=== PATIENT | male | born 1955 | race Caucasian/White ===

== ENCOUNTER 2018-12-07 00:10 | Day surgery (SDC) | payer OTHER ==
[~2018-12-07] VITALS: Ht 185.4 cm; Wt 72.6 kg
[~2018-12-07 00:10] MED LIST: AMLO-127 PO; CEP500 PO; CEPH500C24 PO; DOCU-416 PO; IBUP-136 PO; OXYC-865 PO
[2018-12-07] MEDS ORDERED: LIDOCAINE MPF 1% 5 ML VIAL ONE (06:57)
[2018-12-07] MEDS ORDERED: PROPOFOL EMUL(*) 10MG/ML 20 ML 60 ML ONE (06:57)
[2018-12-07] MEDS ORDERED: NORMOSOL R SOLN(*) 1000 ML BAG 1,000 ML IV PRN (07:55)
[2018-12-07] MEDS ORDERED: LIDOCAINE/SOD BICARB 8.4% SYR ID ONE (07:55)
[2018-12-07 08:04] VITALS: BP 139/77
[2018-12-07 09:41] VITALS: BP 92/62
[2018-12-07 10:02] VITALS: BP 143/82
[2018-12-07 10:16] VITALS: BP 126/80
[2018-12-07 10:17] VITALS: BP 115/72
== END 2018-12-07 10:45 | disposition home or self-care (01) ==
LOC: OR 00:10
PROVIDERS: ATTEND Family Medicine
DX: Z12.11 Encounter for screening for malignant neoplasm of colon (principal); I10 Essential (primary) hypertension; Z86.010 Personal history of colon polyps; Z87.891 Personal history of nicotine dependence
CPT/HCPCS: 00812; 45378; J2001; J2704

== ENCOUNTER 2019-02-01 10:00 | Outpatient (RCR) | payer OTHER ==
[~2019-02-01] VITALS: Ht 185.4 cm; Wt 73.6 kg
[~2019-02-01 10:00] MED LIST changes: +PHENYLEPHRINE 0.5% 15 ML BTL ONE
[2019-02-01 10:57] VITALS: BP 130/81
[2019-02-01] MEDS ORDERED: PER PO (10:57)
--- NOTE | 2019-02-01 15:03 | ONCOLOGY CONSULTATION ---
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 CHIEF COMPLAINT Discussion of postoperative radiotherapy. 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 The patient ultimately was referred to Dr. Da Silva from from Oral Surgery who performed a biopsy of his ventral tongue/floor of mouth lesion on the right side on January 05, 2019, which revealed squamous cell carcinoma, moderately differentiated. The patient underwent a PET/CT scan on January 22, 2019, which shows an oval mass in the right tongue measuring 2.9 x 1.6 cm in size, with a peak SUV of 18.2. The abnormal tracer activity extends superiorly along the right lateral buccal mucosa to the palate where the maximum SUV is 5.32. A right submandibular lymph node measures 1.2 x 1.4 cm in size with a peak SUV of 8.3. A right level 3 lymph node in the upper neck measures 1.3 x 1.4 cm with a peak SUV of 8.3. There is mildly elevated activity in the right submandibular gland with a peak SUV of 3.95. There is no evidence of distant metastatic spread. The patient has met with Dr. Kam Montano, who feels the patient is a candidate for a partial glossectomy and bilateral selective lymph node dissection. He is scheduled to undergo this surgery next week. On presentation today, patient reports that he has significant pain in his oral tongue and is taking hydrocodone for this. This interferes with his eating, and as such, he is eating mostly soft solid foods. He denies significant dysphagia, ear pain, or trismus. Additional review of systems is negative and documented in the chart. PAST MEDICAL HISTORY 1. Squamous cell carcinoma of the tongue, see HPI. 2. Hypertension. MEDICATIONS 1. Amlodipine. 2. Hydrocodone. ALLERGIES No known drug allergies. SOCIAL HISTORY The patient is a current smoker and has smoked for approximately 42 years. No significant drug use. The patient drinks approximately six beers per week. FAMILY HISTORY Patient has a sister with history of a brain tumor. PHYSICAL EXAMINATION VITAL SIGNS: Temperature 96.8, pulse 64, blood pressure 130/81, respiratory rate 12, O2 saturation is 92% on room air. CONSTITUTIONAL/GENERAL APPEARANCE: Patient is sitting comfortably in a chair. No acute distress. HEENT: Pupils equal, round, and reactive to light and accommodation. Extraocular movements are intact. On inspection of the oral cavity, the patient has an ulcerative lesion along the right ventral surface of his tongue, which extends across midline. This lesion extends down into the floor of mouth on the right side and anteriorly. He is edentulous. There are no other lesions in his oral cavity. NECK: Patient has a palpable right submandibular lymph node as well as a right subdigastric lymph node. There is no other abnormal lymphadenopathy in the neck or axilla. LUNGS: Clear to auscultation and percussion bilaterally. CARDIOVASCULAR: Regular rate and rhythm. Normal S1, S2. No murmurs, rubs, or gallops. ABDOMEN: Soft, nontender, with active bowel sounds. No hepatosplenomegaly. EXTREMITIES: No edema, clubbing, or cyanosis. NEUROLOGIC: Patient is alert and oriented times three. Gait is normal. IMPRESSION The patient is a 64-year-old gentleman with a squamous cell carcinoma of the ventral surface of the tongue, extending into the floor of the mouth. There does not appear to be bony involvement in the mandible on his scan. The patient clinically has a T2 N2b squamous cell carcinoma of the tongue. The patient is scheduled to undergo surgical resection including a partial glossectomy and selective neck dissection bilaterally. He presents today to discuss postoperative radiotherapy. PLAN The patient was apprised that surgical resection for oral tongue tumor with extension in the floor of mouth is generally the preferred approach. Given his multiple positive lymph nodes on PET/CT scan, we will likely recommend postoperative radiotherapy. The indications for postoperative radiotherapy include multiple lymph nodes as well as close/positive margins and extracapsular extension were discussed at length with the patient. The logistics and side effect profile of radiotherapy were discussed as well. We will plan to see the patient back on March 08, 2019, and we will further discuss radiotherapy at that time. CATHY
== END 2019-02-10 | disposition home or self-care (01) ==
LOC: RAON 10:00
PROVIDERS: ATTEND Radiology Radiation Oncology
DX: Z02.9 Encounter for administrative examinations, unspecified (principal)